=== PATIENT | male | born 1975 | race Hispanic/Latino ===

== ENCOUNTER 2024-06-29 13:10 | Emergency (ER) | payer OTHER ==
[~2024-06-29] VITALS: Ht 167.6 cm; Wt 85.7 kg
[2024-06-29] MEDS ORDERED: CORICIDIN HBP1 EAC4 PO (14:12)
[2024-06-29 14:34] VITALS: BP 161/89
[2024-06-29 14:35] VITALS: PULSE 76; RESP 16; TEMP 98.5; O2SAT 97
== END 2024-06-29 14:30 | disposition home or self-care (01) ==
LOC: FSED 13:25
DX: R09.89 Other specified symptoms and signs involving the circulatory and respiratory systems (principal); J06.9 Acute upper respiratory infection, unspecified
CPT/HCPCS: 0223U; 83518; 87400; 99282